=== PATIENT | male | born 2000 | race Caucasian/White ===

== ENCOUNTER 2025-05-18 08:57 | Outpatient (AMB) | payer BC, SELFPAY ==
--- NOTE | 2025-05-18 09:09 | A.OFFPC_ITS ---
Vital Signs 05/18/25 09:11 05/18/25 09:47 Height 6 ft 1.62 in Weight 289 lb BMI 37.5 BP 145/67 H 141/78 H Blood Pressure Location Lt brachial Position Sitting Respiration 16 Pulse 72 Pulse Source Pulse Oximeter Temp 98.2 F Temp Source Temporal Artery Scan Pulse Oximetry (%) 98 Oxygen Delivery Method Room Air Intake Visit Reasons: Alonzo Douglas patient Substance Abuse Counselor Required: No Accompanied by: Self / Same As Patient Allergies No Known Allergies Allergy (Verified 05/18/25 09:47) Medication List - Last Reconciled 05/18/25 by Gretel Hernandez PA-C docusate sodium (Colace) 100 mg PO BID hydrocortisone 2.5% (Anusol-HC) 1 appl [place] BID-QID PRN polyethylene glycol 3350 (Miralax) 17 grams PO BID Tobacco use date assessed: 05/18/25 Dental Screening Dental Screen Date: 05/18/25 Did you have a dental visit in the last 12 months?: Yes Did you have a dental problem in the last 6 months where you did not have access to dental care?: No Was dental information given to patient?: Patient has dentist HPI Physical- Misael patient HPI Details The patient is a 24-year-old male presenting for a physical examination and evaluation of intermittent rectal bleeding. The patient reports experiencing intermittent rectal bleeding for a few years, which he attributes to hemorrhoids. He has used topical creams in the past with some relief, but the symptoms recur. There is no family history of colon cancer, and the bleeding is not associated with black stools or daily occurrence. The patient recently traveled to [place], which led to dietary changes and possible constipation, exacerbating the hemorrhoid symptoms. He denies regular c onstipation or straining but acknowledges occasional episodes during travel. The patient has a family history of pancreatic cancer, with his grandfather having from the disease. He is aware of the importance of monitoring for abdominal pain due to this family history. The patient reports difficulty focusing and completing tasks, suspecting possible Attention Deficit Disorder (ADD), as his brother has been diagnosed with ADD/ADHD. He experiences challenges with concentration during conversations and academic work. 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 Mother Hypothyroid Social History Housing: House Alcohol intake: current Alcohol intake frequency: a few times a week Patient Tobacco Use Status: Never used Tobacco Substance Use Type: Marijuana service: No Current occupational status: employed and student Cognitive needs: No Hearing needs: No Vision needs: No Questionnaire PHQ-9 Over the last 2 weeks, how often have you been bothered by any of the following problems? 1. Little interest or pleasure in doing things: not at all 2. Feeling down, depressed, or hopeless: not at all 3. Trouble falling or staying asleep, or sleeping too much: not at all 4. Feeling tired or having little energy: not at all 5. Poor appetite or overeating: not at all 6. Feeling bad about yourself - or that you are a failure or have let yourself or your family down: not at all 7. Trouble concentrating on things, such as reading the newspaper or watching television: not at all 8. Moving or speaking so slowly that other people could have noticed. Or the opposite - being so fidgety or restless that you have been moving around a lot more than usual: not at all 9. Thoughts that you would be better off or of hurting yourself in some way: not at all Total score: 0 Depression Screening Interpretation: Negative Depression Screening Done: Yes 80778 - PHQ-9 Billing: Yes Source: Developed by Drs. Artie Duarte, Shante Ahuja, Rolo Nicholson and colleagues, with an educational justyn from [employer]. Thrive Questionnaire Date Thrive assessed: 05/18/25 I am a: Patient What is your living situation today?: I have a steady place to live Within the past 12 months, did the food you bought not last and you didn't have the money to get more?: Never true Within the past 12 months, did you worry whether your food would run out before you got money to buy more?: Never true Do you have trouble paying for medicines?: No Do you have trouble getting transportation to medical appointments?: No Do you have trouble paying your heating and electricity bill?: No Do you have trouble taking care of your child, family member or friend?: No Do you have trouble with day-to-day activities such as bathing, preparing meals, shopping, managing finances, etc.?: No Are you currently unemployed and looking for a job?: No Are you interested in more education?: No Please select the resources that you would like help with: None THRIVE Score: 0 AUDIT C Alcohol Use Questionnaire (AUDIT-C) 1. How often do you have a drink containing alcohol?: 2-3 times a week 2. How many drinks containing alcohol do you have on a typical day when you are drinking?: 1 or 2 3. How often do you have six or more drinks on one occasion?: Never Total Score: 3 Score Reviewed/Action Taken: No ELZBIETA-7 AMB Questionnaire ELZBIETA-7 Date ELZBIETA - 7 assessed: 05/18/25 Feeling nervous, anxious, or on edge: 0 = Not at all Not being able to stop or control worryin = Not at all Worrying too much about different things: 0 = Not at all Trouble relaxin = Not at all Being so restless that it is hard to sit still: 0 = Not at all Becoming easily annoyed or irritable: 0 = Not at all Feeling afraid as if something awful might happen: 0 = Not at all Total ELZBIETA-7 score (0-4 normal; 5-9 mild; 10-14 moderate; 15-21 severe): 0 Source: Developed by Drs. Artie Duarte, Shante Ahuja, Rolo Nicholson and colleagues, with an educational justyn from [employer]. ELZBIETA-7 Assessment Billing ELZBIETA-7 Assessment Tool: ELZBIETA-7 Assessment 54760 Review of Systems Const Details: - Gastrointestinal: Reports intermittent rectal bleeding, denies black stools or daily bleeding - Neurological: Reports difficulty focusing and completing tasks, denies anxiety or depression - Cardiovascular: Denies chest pain or shortness of breath - General: Denies fatigue or stress All systems reviewed & are unremarkable except as noted in HPI and below Physical exam (Primary Care) Vital Signs: Last Vital Signs Temp 98.2 F 05/18/25 09:11 Pulse 72 05/18/25 09:11 Resp 16 05/18/25 09:11 BP 145/67 H 05/18/25 09:11 Pulse Ox 98 05/18/25 09:11 Oxygen Delivery Method Room Air 05/18/25 09:11 Care Plan Goal for BP management: <140/90 patient to keep blood pressure diary return in 1 month for blood pressure check BMI result Body Mass Index 37.5 BMI Assessment/Plan discussion: High BMI High, discussed plan: lifestyle, weight reduction, dietary, physical activity, alcohol moderation and other Tobacco/Smoking Status: Tobacco use Status Tobacco use date assessed 05/18/25 05/18/25 09:15 Patient Tobacco Use Status Never used Tobacco 05/18/25 09:15 PHQ-9: PHQ-9 Score PHQ-9: Total score 0 05/18/25 09:42 Depression Screening Interpretation: Negative Thrive Assessment: Date of Thrive Assessment Date Thrive assessed 05/18/25 05/18/25 09:15 Const Other: Appearance: Alert. Oriented X3. No acute distress. Head: Normal external exam. Normocephalic. Atraumatic. Eyes: Pupils are equal, round, and reactive to light. Extraocular movements intact. Conjunctiva and sclera normal. Eyelids normal. Ears: External auditory canal normal. Tympanic membranes normal. Throat: Pharynx normal. Uvula midline. Moist mucous membranes. Neck: Normal inspection. Neck supple. Full range of motion. No adenopathy. Thyroid Normal. No meningeal signs. No neck mass noted. Cardiovascular: Normal heart rate and rhythm. Heart sound normal. No murmurs noted. Pulses normal throughout. Blood pressure was noted to be a little high at 141/78. Respiratory: No respiratory distress. Painless inspiration. Breath sounds normal. No wheezes/rales/rhonchi noted. Chest nontender. No accessory muscle usage noted or decreased air movement noted. Abdomen: Soft and nontender. Bowel sounds normal in all 4 quadrants. No distention noted. No organomegaly noted. No visible injury noted. Back: No costovertebral angle tenderness. Full range of motion noted. Skin: Skin warm and dry. Normal skin color. Normal skin turgor. No rashes/lesions/lacerations noted. Extremities: No lower extremity edema. Extremities exhibit normal range of motion. Extremities nontender. Neuro: Oriented X 3. No motor deficit. No sensory deficit. Reflexes normal. Results AMB Hemoglobin A1c AMB Hemoglobin A1c 5.2 % Last Edit by GABRIELLE Mendez on 05/18/25 09:44 Results Reviewed Results Reviewed: Laboratory Last Values Hgb A1c (Clinic) 5.2 % (4.0-6.0) 05/18/25 09:35 - Labs: Hemoglobin A1c 5.2%, indicating no diabetes or prediabetes Coding Level of Care Code New Pt Level 4 (47911) New Pt Prev Care 18-39yr(76227 Diagnoses Annual physical exam Z00.00 Hemorrhoids K64.9 Elevated blood pressure reading R03.0 Family history of attention deficit hyperactivity disorder (ADHD) Z81.8 Class 2 obesity with body mass index (BMI) of 37.0 to 37.9 in adult E66.812; Z68.37 Additional Codes PHQ-9 - 52994 - PHQ-9 Billing: Yes ([id number]) ELZBIETA-7 Assessment Billing - ELZBIETA-7 Assessment Tool: ELZBIETA-7 Assessment 49804 ([id number]) Assessment & Plan Assessment & Plan (1) Annual physical exam: Code(s): Z00.00 - Encounter for general adult medical examination without abnormal findings Category: Medical (2) Hemorrhoids: Code(s): K64.9 - Unspecified hemorrhoids Category: Medical Plan: The patient will be referred to a senior quantity surveyor for further evaluation, including a possible colonoscopy, to rule out other causes of rectal bleeding. Topical Anisol cream and a regimen of Colace and MiraLAX are recommended to manage symptoms and prevent straining. (3) Elevated blood pressure reading: Code(s): R03.0 - Elevated blood-pressure reading, without diagnosis of hypertension Category: Medical Plan: The patient is advised to monitor blood pressure at home and maintain a log for review in one month. Lifestyle modifications, including dietary changes and increased physical activity, are recommended to manage blood pressure. (4) Family history of attention deficit hyperactivity disorder (ADHD): Code(s): Z81.8 - Family history of other mental and behavioral disorders Category: Medical Plan: The patient will be referred to a psychiatrist for evaluation and potential diagnosis of ADD, with consideration for medication management if diagnosed. (5) Class 2 obesity with body mass index (BMI) of 37.0 to 37.9 in adult: Code(s): E66.812 - Obesity, class 2; Z68.37 - Body mass index [BMI] 37.0-37.9, adult Category: Medical Plan: Patient to improve diet and exercise regimen. Condition is chronic and stable continue to monitor. Plan Plan Patient was informed and verbally consented to the use of an ambient scribe for clinic note documentation during this visit. 1. Hemorrhoids The patient will be referred to a senior quantity surveyor for further evaluation, including a possible colonoscopy, to rule out other causes of rectal bleeding. Topical Anisol cream and a regimen of Colace and MiraLAX are recommended to manage symptoms and prevent straining. 2. Elevated Blood Pressure The patient is advised to monitor blood pressure at home and maintain a log for review in one month. Lifestyle modifications, including dietary changes and increased physical activity, are recommended to manage blood pressure. 3. Attention Deficit Disorder (Add) The patient will be referred to a psychiatrist for evaluation and potential di agnosis of ADD, with consideration for medication management if diagnosed. During the visit, I discussed with the patient the management of hemorrhoids, including the use of topical Anisol cream and the importance of avoiding straining by using Colace and MiraLAX. I also explained the need for a referral to a senior quantity surveyor for further evaluation and possible colonoscopy to rule out other causes of rectal bleeding. We discussed the importance of monitoring blood pressure at home and making lifestyle changes to manage elevated blood pressure. I recommended a referral to a psychiatrist for evaluation of potential ADD, considering the patient's difficulty with focus and family history. Orders: Orders Liver Panel Today Z00.00 - Encounter for general adult medical examination without abnormal findings Magnesium Today Z00.00 - Encounter for general adult medical examination without abnormal findings Vitamin B12 and Folate Today Z00.00 - Encounter for general adult medical examination without abnormal findings Vitamin D 25-OH Total Today Z00.00 - Encounter for general adult medical examination without abnormal findings TSH reflex Free T4 Today Z00.00 - Encounter for general adult medical examination without abnormal findings PSA,Total (Free>4and<10) Today Z00.00 - Encounter for general adult medical examination without abnormal findings Dihydrotestosterone Today Z00.00 - Encounter for general adult medical examination without abnormal findings Testosterone, Free/Total Today Z00.00 - Encounter for general adult medical examination without abnormal findings AMB Hemoglobin A1c Today Z13.9 - Encounter for screening, unspecified C Reactive Protein Today Z00.00 - Encounter for general adult medical examination without abnormal findings Complete Blood Count Auto Diff Today Z00.00 - Encounter for general adult medical examination without abnormal findings Comprehensive [place]. Panel Fast Today Z00.00 - Encounter for general adult medical examination without abnormal findings Lipid Panel Today Z00.00 - Encounter for general adult medical examination without abnormal findings DHEA Sulfate Today Z00.00 - Encounter for general adult medical examination without abnormal findings Referrals Gastroenterology Referral Z12.11 - Encounter for screening for malignant neoplasm of colon Psychiatry Outpatient Consultation Service Z13.39 - Encounter for screening examination for other mental health and behavioral disorders, Z81.8 - Family history of other mental and behavioral disorders Medications: New polyethylene glycol 3350 (Miralax) 17 grams PO BID 238 grams 3RF docusate sodium (Colace) 100 mg PO BID 30 caps 3RF hydrocortisone 2.5% (Anusol-HC) 1 appl IL BID-QID PRN 30 grams 3RF hemorrhoids Patient Instructions: - Use Anisol cream as directed to manage hemorrhoid symptoms. - Take Colace and MiraLAX as needed to prevent straining during bowel movements. - Monitor blood pressure at home and keep a log for review in one month. - Follow a healthy diet and increase physical activity to help manage blood pressure. - Attend the referral appointment with the senior quantity surveyor for further evaluation. - Follow up with a psychiatrist for evaluation of potential ADD.
[2025-05-18 09:11] VITALS: BP 145/67; PULSE 72; RESP 16; TEMP 36.8; O2SAT 98; BMI 37.5
--- OUTSIDE RECORDS SUMMARY | 2025-05-18 09:33 | XMS_ITS | Encounter Summary ---
Author Organization [facility] Address [address] [place] [phone] Phone Care Team Providers Care Senior Commissions Analyst Name Role Phone Paulo Bran MD Primary Care Provider [phone] Encounter Details Date Type Department Care Team (Late st Contact Info) Description 09/22/2012 Documentation [facility] [place] Family Medicine [address] [place] [address] Family Medicine, Physician [address] [place], [place] [phone] Social History Tobacco Use Types Packs/Day Years Used Date Smoking Tobacco: Never Assessed Sex and Gender Information Value Date Recorded Sex Assigned at Not on file Legal Sex Male 1:01 PM EDT Gender Identity Not on file Sexual Orientation Not on file documented as of this encounter Plan of Treatment Not on file documented as of this encounter Visit Diagnoses Not on filedocumented in this encounter Care Teams Senior Commissions Analyst Relationship Specialty Start Date End Date Paulo Bran MD [address] [place] [address] PCP - General Pediatrics 12/27/17 12/22/22 documented as of this encounter
--- OUTSIDE RECORDS SUMMARY | 2025-05-18 09:33 | XMS_ITS | Encounter Summary ---
Author Organization [facility] Address [address] [place] [address] Phone Care Team Providers Care Accounting Teacher Name Role Phone Paulo Bran MD Primary Care Provider [phone] Encounter Details Date Type Department Care Team (Late st Contact Info) Description 04/29/2017 Conversion Encounter [facility] [place] [address] [place] [address] Social History Tobacco Use Types Packs/Day Years Used Date Smoking Tobacco: Never Comments:Never smoker Sex and Gender Information Value Date Recorded Sex Assigned at Not on file Legal Sex Male 1:01 PM EDT Gender Identity Not on file Sexual Orientation Not on file documented as of this encounter Plan of Treatment Not on file documented as of this encounter Visit Diagnoses Not on filedocumented in this encounter Care Teams Accounting Teacher Relationship Specialty Start Date End Date Paulo Bran MD [address] [place] [address] PCP - General Pediatrics 12/27/17 12/22/22 documented as of this encounter
--- OUTSIDE RECORDS SUMMARY | 2025-05-18 09:33 | XMS_ITS | Encounter Summary ---
Author Organization [facility] Address [address] [place] [phone] Phone Care Team Providers Care Civil Engineering Director Name Role Phone Paulo Bran MD Primary Care Provider [phone] Encounter Details Date Type Department Care Team (Late st Contact Info) Description 05/02/2014 Documentation [facility] [place] Family Medicine [address] [place] [address] Family Medicine, Physician [address] [place], [place] [phone] Social History Tobacco Use Types Packs/Day Years [...] on filedocumented in this encounter Care Teams Civil Engineering Director Relationship Specialty Start Date End Date Paulo Bran MD [address] [place] [address] PCP - General Pediatrics 12/27/17 12/22/22 documented as of this encounter
--- OUTSIDE RECORDS SUMMARY | 2025-05-18 09:33 | XMS_ITS | Encounter Summary ---
Author Organization [facility] Address [address] [place] [address] Phone Care Team Providers Care Radiation Oncology Nurse Name Role Phone Paulo Bran MD Primary Care Provider [phone] Encounter Details Date Type Department Care Team (Late st Contact Info) Description 05/02/2014 [place] [facility] [place] [address] [place] [address] Family Medicine, Physician [address] [place], [place] [phone] Social History Tobacco Use Types Packs/Day Years [...] on filedocumented in this encounter Care Teams Radiation Oncology Nurse Relationship Specialty Start Date End Date Paulo Bran MD [address] [place] [address] PCP - General Pediatrics 12/27/17 12/22/22 documented as of this encounter
--- OUTSIDE RECORDS SUMMARY | 2025-05-18 09:33 | XMS_ITS | Encounter Summary ---
Author Organization [facility] Address [address] [place] [address] Phone Care Team Providers Care Firewall Security Engineer Name Role Phone Paulo Bran MD Primary Care Provider [phone] Encounter Details Date Type Department Care Team (Late st Contact Info) Description 05/14/2016 Documentation [facility] [place] Family Medicine [address] [place] [address] Family Medicine, Physician [address] [place], [place] [phone] Social History Tobacco Use Types Packs/Day Years [...] on filedocumented in this encounter Care Teams Firewall Security Engineer Relationship Specialty Start Date End Date Paulo Bran MD [address] [place] [address] PCP - General Pediatrics 12/27/17 12/22/22 documented as of this encounter
--- OUTSIDE RECORDS SUMMARY | 2025-05-18 09:33 | XMS_ITS | Encounter Summary ---
Author Organization [facility] Address [address] [place] [address] Phone Care Team Providers Care Director Of Property Management Name Role Phone Paulo Bran MD Primary Care Provider [phone] Encounter Details Date Type Department Care Team (Late st Contact Info) Description 02/05/2010 Documentation [facility] [place] Family Medicine [address] [place] [address] Family Medicine, Physician [address] [place], [place] [phone] Social History Tobacco Use Types Packs/Day Years [...] on filedocumented in this encounter Care Teams Director Of Property Management Relationship Specialty Start Date End Date Paulo Bran MD [address] [place] [address] PCP - General Pediatrics 12/27/17 12/22/22 documented as of this encounter
--- OUTSIDE RECORDS SUMMARY | 2025-05-18 09:33 | XMS_ITS | Encounter Summary ---
Author Organization [facility] Address [address] [place] [address] Phone Care Team Providers Care Opening Machine Cleaner Name Role Phone Paulo Bran MD Primary Care Provider [phone] Encounter Details Date Type Department Care Team (Late st Contact Info) Description 09/17/2011 Documentation [facility] [place] Family Medicine [address] [place] [address] Family Medicine, Physician [address] [place], [place] [phone] Social History Tobacco Use Types Packs/Day Years [...] on filedocumented in this encounter Care Teams Opening Machine Cleaner Relationship Specialty Start Date End Date Paulo Bran MD [address] [place] [address] PCP - General Pediatrics 12/27/17 12/22/22 documented as of this encounter
--- OUTSIDE RECORDS SUMMARY | 2025-05-18 09:33 | XMS_ITS | Encounter Summary ---
Author Organization [facility] Address [address] [place] [address] Phone Care Team Providers Care News Photographer Name Role Phone Paulo Bran MD Primary Care Provider [phone] Encounter Details Date Type Department Care Team (Late st Contact Info) Description 09/22/2012 Documentation [facility] [place] [place] Family Medicine [address] [place] [address] Family Medicine, Physician [address] [place], [place] [phone] Social History Tobacco Use Types Packs/Day Years [...] on filedocumented in this encounter Care Teams News Photographer Relationship Specialty Start Date End Date Paulo Bran MD [address] [place] [address] PCP - General Pediatrics 12/27/17 12/22/22 documented as of this encounter
--- OUTSIDE RECORDS SUMMARY | 2025-05-18 09:33 | XMS_ITS | Encounter Summary ---
Author Organization [facility] Address [address] [place] [address] Phone Care Team Providers Care Ultrasound Specialist Name Role Phone Paulo Bran MD Primary Care Provider Encounter Details Date Type Department Care Team (Late st Contact Info) Description 08/24/2014 Documentation [facility] [place] Family Medicine [address] [place] [address] Family Medicine, Physician [address] [place], [place] [phone] Social History Tobacco Use Types Packs/Day Years [...] on filedocumented in this encounter Care Teams Ultrasound Specialist Relationship Specialty Start Date End Date Paulo Bran MD [address] [place] [address] PCP - General Pediatrics 12/27/17 12/22/22 documented as of this encounter
--- OUTSIDE RECORDS SUMMARY | 2025-05-18 09:33 | XMS_ITS | Encounter Summary ---
Author Organization [facility] Address [address] [place] [address] Phone Care Team Providers Care Insurance Consultant Name Role Phone Paulo Bran MD Primary Care Provider [phone] Encounter Details Date Type Department Care Team (Late st Contact Info) Description 03/01/2012 [place]ation [facility] [place] [address] [place] [address] Family Medicine, Physician [address] [place], [place] [phone] Social History Tobacco Use Types Packs/Day Years [...] on filedocumented in this encounter Care Teams Insurance Consultant Relationship Specialty Start Date End Date Paulo Bran MD [address] [place] [address] PCP - General Pediatrics 12/27/17 12/22/22 documented as of this encounter
--- OUTSIDE RECORDS SUMMARY | 2025-05-18 09:33 | XMS_ITS | Encounter Summary ---
Author Organization [facility] Address [address] [place] [address] Phone Care Team Providers Care Web Solutions Architect Name Role Phone Paulo Bran MD Primary Care Provider [phone] Encounter Details Date Type Department Care Team (Late st Contact Info) Description 06/05/2014 Documentation [facility] [place] Medicine [address] [place] [address] Family Medicine, Physician [address] [place], [place] [phone] Social History Tobacco Use Types Packs/Day Years [...] on filedocumented in this encounter Care Teams Web Solutions Architect Relationship Specialty Start Date End Date Paulo Bran MD [address] [place] [address] PCP - General Pediatrics 12/27/17 12/22/22 documented as of this encounter
--- OUTSIDE RECORDS SUMMARY | 2025-05-18 09:33 | XMS_ITS | Encounter Summary ---
Author Organization [facility] Address [address] [place] [address] Phone Care Team Providers Care Decay Control Operator Name Role Phone Paulo Bran MD Primary Care Provider [phone] Encounter Details Date Type Department Care Team (Late st Contact Info) Description 05/02/2014 Documentation [facility] Family Medicine [address] [place] [address] Family Medicine, Physician [address] [place], [place] [phone] Social History Tobacco Use Types Packs/Day Years [...] on filedocumented in this encounter Care Teams Decay Control Operator Relationship Specialty Start Date End Date Paulo Bran MD [address] [place] [address] PCP - General Pediatrics 12/27/17 12/22/22 documented as of this encounter
--- OUTSIDE RECORDS SUMMARY | 2025-05-18 09:33 | XMS_ITS | Encounter Summary ---
Author Organization [facility] Address [address] [place] [address] Phone Care Team Providers Care External Grinder Name Role Phone Paulo Bran MD Primary Care Provider [phone] Encounter Details Date Type Department Care Team (Late st Contact Info) Description 05/06/2015 Documentation [facility] [place] Family Medicine [address] [place] [address] Family Medicine, Physician [address] [place], [place] [phone] Social History Tobacco Use Types Packs/Day Years [...] on filedocumented in this encounter Care Teams External Grinder Relationship Specialty Start Date End Date Paulo Bran MD [address] [place] [address] PCP - General Pediatrics 12/27/17 12/22/22 documented as of this encounter
--- OUTSIDE RECORDS SUMMARY | 2025-05-18 09:33 | XMS_ITS | Clinical Summary ---
Author Organization [facility] Address [address] [place] [address] Phone Care Team Providers Care Webbing Seamer Pound Net Name Role Phone Unavailable Primary Care Provider Unavailabl e Allergies No known active allergies Medications No known medications Active Problems Problem Noted Date Diagnosed Date Psychosocial stressors 05/14/2017 Benign mole 05/14/2017 Overview (05/14/2017): Use sunscreen check yearly Intrinsic eczema 10/14/2009 Resolved Problems Problem Noted Date Diagnosed Date Resolved Date Overweight, pediatric, BMI ( body mass index) > 99% for age 0905/14/2017 02/19/2020 Overview (05/14/2017): Even though you are happy with your wt, you are 30 lbs overweight, and it would be great if you could lose some, Perhaps by suggesting Healthier meals at dads, less fast food, no sugary drinks Immunizations Immunization Administration Dates Next Due DTP 12/16/2000, 0,01/16/2000,11/17 HPV Vaccine 9 Valent 05/03/2015 HPV, Quadrivalent 06/04/2014,05/01/2014 Hep A, ped/adol 05/12/2016,05/01/2014 Hep B, ped/adol 06/10/2000,1999,1999 Hib (PRP-T) 12/16/2000, 0,01/16/2000,11/17 Influenza Split 09/21/2012,09/16/2011,08/06/2010 Influenza, injectable, quadrivalent 08/23/2014 Influenza, injectable, quadr ivalent, preservative free 08/11/2018,05/14/2017,05/12/2016,05/03 Influenza, injectable, trivalent 10/14/2009 MMR 05/04/2005,10/11/2000 Meningococcal B Trumenba 02/19/2020,02/14/2019 Meningococcal Conj (Menactra) MCV4P 05/12/2016,0 02/29/2012 OPV 05/04/2005, 1,01/16/2000,11/17 Pneumococcal Conjugate 03/21/2001,12/16/2000, Tdap 02/29/2012 Varicella 10/14/2009,12/16/2000 Family History Medical History Relation Name Comments Asthma Father Heart disease (Premature) Maternal Grandfather Thyroid disease Mother Hypothyroid Pancreatic cancer Paternal Grandfather Relation Name Status Comments Brother Alive Father Alive Maternal Grandfather Mother Alive Other Family history of Heart disease Paternal Grandfather Sister Alive Social History Tobacco Use Types Packs/Day Years Used Date Smoking Tobacco: Never Smokeless Tobacco: Never Comments:Never smoker Hunger/Food Answer Date Recorded In the last 12 months, did y ou or your family ever eat less than you felt you should because there wasn't enough money for food? No 02/19/2020 Stable Housing Answer Date Recorded Are you worried that in the next 2 months you may not have stable housing? No 02/19/2020 Transportation Concerns Answer Date Rec orded In the last 12 months, have you or your family ever had to go without healthcare because you didn't have a way to get there? No 02/19/2020 Hazards in Home Answer Date Recorded Think about the place you li ve. Do you have problems with any of the following? Pests (mice or roaches), mold, no/not working smoke detectors, water leaks, no window guards. No 2019 Financing Utilities Answer Date Recorde d In the last 12 months, has t he electric, gas, oil, or water company threatened to shut off your services in your home? No 02/19/2020 Safety at Home Answer Date Recorded Are you or your family worried about feeling saf e in your home? No 02/19/2020 Outside Support Answer Date Recorded Do you feel that you need mo re support from other people or programs to help you care for yourself or your family? No 02/19/2020 Understanding Health Concerns Answer Da te Recorded Do you need help understandi ng your or your child's healthcare needs (diagnosis, medications, plan, etc.)? No 02/19/2020 Financing Health Concerns Answer Date R ecorded In the last 12 months, was t here a time when your child needed to see a doctor or get medications or supplies but could not because of cost? No 02/19/2020 Missing School or Work Answer Date Matt rded Did you or your child miss s chool or work because of a health problem that could have been avoided? No 02/19/2020 Sex and Gender Information Value Date Recorded Sex Assigned at Not on file Legal Sex Male 1:01 PM EDT Gender Identity Not on file Sexual Orientation Not on file Last Filed Vital Signs Vital Sign Reading Time Taken Comments Blood Pressure 136/67 02/19/2020 11:08 AM EDT Pulse 71 02/19/2020 11:08 AM EDT Temperature 36.8 C (98.2 F) 02/19/2020 11:08 AM EDT Respiratory Rate - - Oxygen Saturation 98% 08/23/2014 12:00 AM EST Inhaled Oxygen Concentration - - Weight 99.2 kg (218 lb 9.6 oz) 02/19/2020 11:08 AM EDT Height 184.2 cm (6' 0.5 ) 02/19/2020 11:08 AM ED T Body Mass Index 29.24 02/19/2020 11:08 AM EDT Plan of Treatment Health Maintenance Due Date Last Done Comments DTaP,Tdap,and Td Vaccines (6 - Td or Tdap) 02/28/2022 02/29/2012, 12/16/2000, 03/15/2000, Additional history exists Influenza Vaccines (#1) 2025 08/11/20, 05/14/2017, 05/12/2016, Additional history exists COVID-19 Vaccine (2024-2 6 season) 2025 02/28/2021, 02/07/2021 Hepatitis B Vaccines Completed 06/10/2000, 1999, 1999 HIB Vaccines Completed 12/16/2000, 11/1999, 01/16/2000, Additional history exists Pneumococcal Vaccine Completed 03/21/2001, 12/16/2000, 06/10/2000 IPV Vaccines Completed 05/04/2005, 01/2001, 01/16/2000, Additional history exists MMR Vaccines Completed 05/04/2005, 10/11/2000 Varicella Vaccines Completed 10/14/2009, 12/16/2000 HPV Vaccines Completed 05/03/2015, 05/15, 05/01/2014 Hepatitis A Vaccines Completed 05/12/2016, 05/01/20 14 Meningococcal Vaccine Completed 05/12/2016, 012 Men B Vaccine Completed 02/19/2020, 02/14/2019
--- OUTSIDE RECORDS SUMMARY | 2025-05-18 09:33 | XMS_ITS | Encounter Summary ---
Author Organization [facility] Address [address] [place] [address] Phone Care Team Providers Care Injection Operator Name Role Phone Paulo Bran MD Primary Care Provider Encounter Details Date Type Department Care Team (Late st Contact Info) Description 05/06/2015 Documentation [facility] [place] Family Medicine [address] [place] [address] Family Medicine, Physician [address] [place], [place] [phone] Social History Tobacco Use Types Packs/Day Years [...] on filedocumented in this encounter Care Teams Injection Operator Relationship Specialty Start Date End Date Paulo Bran MD [address] [place] [address] PCP - General Pediatrics 12/27/17 12/22/22 documented as of this encounter
--- OUTSIDE RECORDS SUMMARY | 2025-05-18 09:33 | XMS_ITS | Encounter Summary ---
Author Organization [facility] Address [address] [place] [address] Phone Care Team Providers Care Remote Control Assembler Name Role Phone Paulo Bran MD Primary Care Provider [phone] Encounter Details Date Type Department Care Team (Late st Contact Info) Description 05/06/2015 Documentation [facility] [place] Family [place] [address] [place] [address] Family Medicine, Physician [address] [place], [place] [phone] Social History Tobacco Use Types Packs/Day Years [...] on filedocumented in this encounter Care Teams Remote Control Assembler Relationship Specialty Start Date End Date Paulo Bran MD [address] [place] [address] PCP - General Pediatrics 12/27/17 12/22/22 documented as of this encounter
--- OUTSIDE RECORDS SUMMARY | 2025-05-18 09:33 | XMS_ITS | Encounter Summary ---
Author Organization [facility] Address [address] [place] [address] Phone Care Team Providers Care Corporate Tax Preparer Name Role Phone Paulo Bran MD Primary Care Provider [phone] Encounter Details Date Type Department Care Team (Late st Contact Info) Description 06/05/[address] [facility] [place] [address] [place] [address] Family Medicine, Physician [address] [place], [place] [phone] Social History Tobacco Use Types Packs/Day Years [...] on filedocumented in this encounter Care Teams Corporate Tax Preparer Relationship Specialty Start Date End Date Paulo Bran MD [address] [place] [address] PCP - General Pediatrics 12/27/17 12/22/22 documented as of this encounter
--- OUTSIDE RECORDS SUMMARY | 2025-05-18 09:33 | XMS_ITS | Encounter Summary ---
Author Organization [facility] Address [address] [place] [address] Phone Care Team Providers Care Coach Name Role Phone Paulo Bran MD Primary Care Provider [phone] Encounter Details Date Type Department Care Team (Late st Contact Info) Description 03/02/2012 Documentation [facility] [place] Medicine [address] [place] [address] Family Medicine, Physician [address] [place], [place] [phone] Social History Tobacco Use Types Packs/Day Years [...] on filedocumented in this encounter Care Teams Coach Relationship Specialty Start Date End Date Paulo Bran MD [address] [place] [address] PCP - General Pediatrics 12/27/17 12/22/22 documented as of this encounter
--- OUTSIDE RECORDS SUMMARY | 2025-05-18 09:33 | XMS_ITS | Encounter Summary ---
Author Organization [facility] Address [address] [place] [address] Phone Care Team Providers Care Show Dog Trainer Name Role Phone Paulo Bran MD Primary Care Provider [phone] Encounter Details Date Type Department Care Team (Late st Contact Info) Description 05/14/2016 [place] [facility] [place] [address] [place] [address] Family Medicine, Physician [address] [place], [place] [phone] Social History Tobacco Use Types Packs/Day Years [...] on filedocumented in this encounter Care Teams Show Dog Trainer Relationship Specialty Start Date End Date Paulo Bran MD [address] [place] [address] PCP - General Pediatrics 12/27/17 12/22/22 documented as of this encounter
[2025-05-18 09:47] VITALS: BP 141/78
== END 2025-05-18 09:51 | disposition home or self-care (01) ==
LOC: HO.HMCSH 08:57
PROVIDERS: PCP Pediatrics; Visit Provider Physician Assistant Medical
DX: Z00.00 Encounter for general adult medical examination without abnormal findings (principal); K64.9 Unspecified hemorrhoids; R03.0 Elevated blood-pressure reading, without diagnosis of hypertension; E66.812 Obesity, class 2; Z68.37 Body mass index [BMI] 37.0-37.9, adult; Z81.8 Family history of other mental and behavioral disorders; Z13.9 Encounter for screening, unspecified

== ENCOUNTER → 2025-05-18 08:57 | Outpatient (BNVA) | payer BC, SELFPAY | PROVIDERS: PCP Pediatrics; Visit Provider Physician Assistant Medical | DX: Z00.00 Encounter for general adult medical examination without abnormal findings (principal); K64.9 Unspecified hemorrhoids; R03.0 Elevated blood-pressure reading, without diagnosis of hypertension; Z81.8 Family history of other mental and behavioral disorders; E66.812 Obesity, class 2; Z68.37 Body mass index [BMI] 37.0-37.9, adult | CPT/HCPCS: 83036; 96127 ==